=== PATIENT | male | born 1990 | race Caucasian/White ===

== ENCOUNTER → 2017-12-11 | Outpatient (CLI) | payer BC ==
--- NOTE | 2017-12-11 17:08 | RADIOLOGY IMAGING REPORT ---
FACILITY: [facility] - [place] PATIENT NAME: Jayesh Melendez : 1990 MR: [id number] V: [id number] EXAM DATE: ORDERING PHYSICIAN: DORY MCGUIRE TECHNOLOGIST: Location: [facility] Patient: Jayesh Melendez : 1990 Visit/Account:[id number] Date of Sevice: 12/11/2017 Exam type: FOOT 3 VIEW LEFT History: Left lateral ankle and foot pain post injury on 12/02/2017 Comparison: None. Findings: A slightly comminuted transverse fracture through the base of the left fifth metatarsal with very sli ght diastases of the fracture fragments. No other fracture dislocation of the left foot is seen IMPRESSION: 1. Slightly comminuted transverse fracture to the base of the left fifth metatarsal with very slight diastases of the fracture fragments. Report Dictated By: Radha Rueda MD at 12/11/2017 5:02 PM Report E-Signed By: Radha Rueda MD at 12/11/2017 5:03 PM WSN:[email or web address]
--- NOTE | 2017-12-11 17:09 | RADIOLOGY IMAGING REPORT ---
FACILITY: [facility] - [place], [place] PATIENT NAME: Jayesh Melendez : 1990 MR: [id number] V: [id number] EXAM DATE: ORDERING PHYSICIAN: DORY MCGUIRE TECHNOLOGIST: Location: [facility] Patient: Jayesh Melendez : 1990 Visit/Account:[id number] Date of Sevice: 12/11/2017 Exam type: ANKLE 3 VIEW MIN LEFT History: Left lateral ankle and foot pain post injury Comparison: Left foot series performed today. Findings: Again noted is a transverse fracture to the base of the left fifth metatarsal which was better seen o n today's left foot series. There is no evidence of acute fracture-dislocation of the left ankle. IMPRESSION: 1. Transverse fracture to the base of left fifth metatarsal which is described on today's left foot series. No evidence of acute fracture-dislocation involving the left ankle Report Dictated By: Radha Rueda MD at 12/11/2017 5:03 PM Report E-Signed By: Radha Rueda MD at 12/11/2017 5:04 PM WSN:[id number]
== END ==
LOC: RAD 14:44
PROVIDERS: ATTEND Nurse Practitioner Family
DX: S92.352A Displaced fracture of fifth metatarsal bone, left foot, initial encounter for closed fracture (principal)